=== PATIENT | female | born 1950 | race Asian ===

== ENCOUNTER 2017-08-24 07:41 | Outpatient (CLI) | payer OTHER | END 2017-08-24 07:43 | disposition short-term general hospital (02) | LOC: AMB 07:41 | DX: Z04.1 Encounter for examination and observation following transport accident (principal) ==

== ENCOUNTER 2017-08-24 21:24 | Emergency (ER) | payer OTHER ==
[~2017-08-24] VITALS: Ht 170.2 cm; Wt 99.8 kg
[2017-08-24 23:51] VITALS: BP 148/80; TEMP 98.8
== END 2017-08-24 23:54 | disposition home or self-care (01) ==
LOC: ED 21:24
DX: S60.222A Contusion of left hand, initial encounter (principal); S60.221A Contusion of right hand, initial encounter; S60.418A Abrasion of other finger, initial encounter; V40.0XXA Car driver injured in collision with pedestrian or animal in nontraffic accident, initial encounter
CPT/HCPCS: 99282

== ENCOUNTER 2017-11-19 12:11 | Outpatient (CLI) | payer OTHER | END 2017-11-19 23:04 | disposition home or self-care (01) | LOC: RAD 12:11 | DX: R07.81 Pleurodynia (principal) ==

== ENCOUNTER 2019-01-22 17:03 | Outpatient (CLI) | payer OTHER ==
[2019-01-22 17:34] LABS: PLATELET COUNT 298 K/uL (152-353)
[2019-01-22 18:04] LABS: POTASSIUM 4.5 mmol/L (3.6-5.2)
== END 2019-01-22 19:23 | disposition home or self-care (01) ==
LOC: LABW 17:03
PROVIDERS: Dermatology Dermatopathology
DX: L65.9 Nonscarring hair loss, unspecified (principal)
CPT/HCPCS: 36415; 80053; 82306; 82626; 82728; 83540; 83550; 84270; 84402; 84403; 84439; 84443; 85027; 86038; 86376

== ENCOUNTER 2022-04-26 12:31 | Outpatient (CLI) | payer OTHER | END 2022-04-26 19:02 | disposition home or self-care (01) | LOC: RAD 12:31 | PROVIDERS: ATTEND Nurse Practitioner Family | DX: Z20.822 Contact with and (suspected) exposure to COVID-19 (principal) ==